=== PATIENT | female | born 1970 | race Two or more races ===

== ENCOUNTER 2018-03-14 20:57 | Observation (INO) | payer BC, OTHER ==
--- NOTE | 2018-03-14 21:26 | PDOC ---
Rapid Medical Evaluation Time Seen by Provider: 03/14/18 21:20 Medical Evaluation: Allergies Allergy/AdvReac Type Severity Reaction Status Date / Time diphenhydramine Allergy Intermediate Rash Verified 03/14/18 11:27 [From Benadryl] Penicillins Allergy Intermediate Rash Verified 03/14/18 11:27 03/14/18 21:21 Pt presents for low H&H found on lab work prior to procedure. Pt with vaginal bleeding for the last two months. Pt supposed to go for a hysteroscopy and D&C. Admits to SOB on exertion. Exam: Appears pale. NAD Orders: Labs, CXR, EKG Pt to proceed to ED for further evaluation Discharge Disposition - Diagnosis Abnormal laboratory test - Referrals Referrals: Eliz Mina DO [Primary Care Provider] - - Patient Instructions - Post Discharge Activity
--- NOTE | 2018-03-14 22:43 | PDOC ---
History of Present Illness - General Chief Complaint: Revisit, Lab Variance Stated Complaint: REF BY DOC. Time Seen by Provider: 03/14/18 21:20 History Source: Patient Exam Limitations: No Limitations - History of Present Illness Initial Comments: 03/15/18 04:22 Pt is a 47 y/o F with PMH of asthma, who presents for low H&H count today during routine blood work. Pt states she has dysfunctional uterine bleeding for the past two months. She follows with Dr. Mina. Given her symptoms, Dr. Mina wanted to take the patient for D&C and hysteroscopy. Her procedure was delayed d/t her H&H count. Pt presents to the ED for transfusion at this time. Pt also admits to shortness of breath on exertion and pale skin. States she goes through a couple of pads a day. Past History - Travel Traveled outside of the country in the last 30 days: No Close contact w/someone who was outside of country & ill: No - Past Medical History Allergies/Adverse Reactions: Allergies Allergy/AdvReac Type Severity Reaction Status Date / Time diphenhydramine Allergy Intermediate Rash Verified 03/14/18 21:24 [From Benadryl] Penicillins Allergy Intermediate Rash Verified 03/14/18 21:24 Home Medications: Ambulatory Orders Cholecalciferol (Vitamin D3) [Vitamin D3 -] 400 unit PO DAILY 03/14/18 Vitamin B Complex 1 each PO DAILY 03/14/18 Anemia: Yes Asthma: Yes (SEASONAL) Cancer: No Cardiac Disorders: Yes (HEART MURMUR) CVA: No COPD: No CHF: No Dementia: No Diabetes: No GI Disorders: No Disorders: No HTN: No Hypercholesterolemia: No Liver Disease: No Seizures: No Thyroid Disease: No - Suicide/Smoking/Psychosocial Hx Smoking History: Never smoked Have you smoked in the past 12 months: Yes Number of Cigarettes Smoked Daily: 5 Hx Alcohol Use: Yes (OCCAS) Drug/Substance Use Hx: No Substance Use Type: None Hx Substance Use Treatment: No Review of Systems - Review of Systems Able to Perform ROS?: Yes Is the patient limited Nigerien proficient: No Constitutional: No: Chills, Fever, Weakness HEENTM: No: Ear Pain, Nose Congestion, Throat Pain Respiratory: Yes: SOB with Exertion. No: Cough, Wheezing Cardiac (ROS): No: Chest Pain, Irregular Heart Rate, Palpitations, Syncope, Chest Tightness ABD/GI: No: Diarrhea, Nausea, Vomiting : Yes: Other (vaginal bleeding x2 months). No: Burning, Dysuria, Pain Musculoskeletal: No: Back Pain, Muscle Pain, Neck Pain Neurological: No: Headache, Numbness, Paresthesia, Weakness, Dizziness Psychiatric: No: Anxiety, Depression Endocrine: No: Excessive Sweating, Intolerance to Cold, Change in Weight Hematologic/Lymphatic: No: Anemia, Blood Clots, Easy Bleeding All Other Systems: Reviewed and Negative *Physical Exam - Vital Signs Last Vital Signs Temp Pulse Resp BP Pulse Ox 98.8 F 78 18 128/75 100 03/14/18 21:20 03/14/18 21:20 03/14/18 21:20 03/14/18 21:20 03/14/18 21:20 - Physical Exam General Appearance: Yes: Nourished, Appropriately Dressed. No: Apparent Distress HEENT: positive: EOMI, AMANDA, Pale Conjunctivae. negative: Normal Voice, TMs Normal, Scleral Icterus (L) Neck: positive: Trachea midline, Supple. negative: Tender, Rigid, Lymphadenopathy (R), Lymphadenopathy (L) Respiratory/Chest: positive: Lungs Clear. negative: Chest Tender, Respiratory Distress, Accessory Muscle Use, Rhonchi, Stridor, Wheezing Cardiovascular: positive: Regular Rhythm, Regular Rate, S1, S2 (present). negative: Murmur Vascular Pulses: Femoral (R): 2+, Femoral (L): 2+, Carotid (R): 2+, Carotid (L) : 2+, Dorsalis-Pedis (R): 2+, Doralis-Pedis (L): 2+ Gastrointestinal/Abdominal: positive: Normal Bowel Sounds, Flat, Soft. negative : Tender, Distended, Guarding, Rebound Musculoskeletal: positive: Normal Inspection. negative: CVA Tenderness Extremity: positive: Normal Capillary Refill, Normal Inspection, Normal Range of Motion Integumentary: positive: Dry, Warm, Pale Neurologic: positive: peanut vendor II-XII NML intact, Fully Oriented, Alert, Normal Mood/ Affect, Normal Response, Motor Strength 5/5 ED Treatment Course - LABORATORY CBC & Chemistry Diagram: 03/15/18 00:29 03/15/18 00:29 - RADIOLOGY Radiology Studies Ordered: Category Date Time Status CHEST PA & LAT [RAD] Stat Radiology 03/14/18 21:26 Ordered Medical Decision Making - Medical Decision Making 03/15/18 04:31 Pt is a 47 y/o F with PMH of asthma, who presents for low H&H count today during routine blood work. Pt states she has dysfunctional uterine bleeding for the past two months. She follows with Dr. Mina. -Lab work shows H&H of 6.6, will order two units at this time -Other lab work is unremarkable, no leukocytosis or gross electrolyte abnormalities. -EKG: NSR rate 61 bpm, Normal intervals and axis. no acute ST-T wave changes -Pt will require two units of PRBC, will place pt in observation. Pt with no PCP. Case discussed with Mario Alberto PRATHERII. Accepted to obs med/surg *DC/Admit/Observation/Transfer Diagnosis at time of Disposition: Anemia Qualifiers: Anemia type: unspecified type Qualified Code(s): D64.9 - Anemia, unspecified - Discharge Dispostion Condition at time of disposition: Stable Decision to Admit order: Yes - Referrals Referrals: Eliz Mina DO [Primary Care Provider] - - Patient Instructions - Post Discharge Activity
--- NOTE | 2018-03-14 22:55 | PDOC ---
*Physical Exam - Vital Signs Last Vital Signs Temp Pulse Resp BP Pulse Ox 98.8 F 78 18 128/75 100 03/14/18 21:20 03/14/18 21:20 03/14/18 21:20 03/14/18 21:20 03/14/18 21:20 Medical Decision Making - Medical Decision Making 03/14/18 22:55 agree with care from [facility] *DC/Admit/Observation/Transfer Diagnosis at time of Disposition: Abnormal laboratory test - Referrals Referrals: Eliz Mina DO [Primary Care Provider] - - Patient Instructions - Post Discharge Activity
[2018-03-15 00:53] LABS: BASO % 0.9 % (0-2.0); EOS % 2.2 % (0-4.5); HEMATOCRIT 21.8 % (32.4-45.2); LYMPH % 32.2 % (8-40); MCH 21.7 pg (25.7-33.7); MCHC 30.3 g/dl (32.0-36.0); MEAN CELL VOLUME 71.6 fl (80-96); MEAN PLT VOLUME 8.3 fl (7.5-11.1); MONO % 11.5 % (3.8-10.2); NEUT % 53.2 % (42.8-82.8); PLATELET COUNT 223 K/MM3 (134-434); RBC 3.05 M/mm3 (3.60-5.2); RDW 16.9 % (11.6-15.6); WHITE BLOOD COUNT 5.8 K/mm3 (4.0-10.0)
[2018-03-15 00:58] LABS: HEMOGLOBIN 6.6 GM/dL (10.7-15.3)
[2018-03-15 01:05] LABS: URINE APPEARANCE CLEAR; URINE BILIRUBIN NEGATIVE (<2.0 mg/dL); URINE COLOR STRAW; URINE GLUCOSE (UA) NEGATIVE (NEGATIVE); URINE KETONE NEGATIVE (NEGATIVE); URINE LEUK ESTERASE NEGATIVE (NEGATIVE); URINE NITRITE NEGATIVE (NEGATIVE); URINE PROTEIN NEGATIVE (NEGATIVE); URINE UROBILINOGEN NEGATIVE mg/dL (0.2-1.0)
[2018-03-15 01:07] LABS: INR 1.06 (0.83-1.09)
[2018-03-15 01:20] LABS: ALBUMIN 3.5 g/dl (3.4-5.0); ALK PHOS 52 U/L (45-117); ANION GAP 3 MMOL/L (8-16); BILIRUBIN,TOTAL 0.2 mg/dL (0.2-1.0); BLOOD UREA NITROGEN 12 mg/dL (7-18); CALCIUM 8.2 mg/dL (8.5-10.1); CHLORIDE 107 mmol/L (98-107); CO2 29 mmol/L (21-32); CREATININE 0.7 mg/dL (0.55-1.02); GLUCOSE,RANDOM 100 mg/dL (74-106); POTASSIUM 3.8 mmol/L (3.5-5.1); SGOT/AST 17 U/L (15-37); SGPT/ALT 17 U/L (12-78); SODIUM 139 mmol/L (136-145); TOT PROT 7.5 g/dl (6.4-8.2)
--- NOTE | 2018-03-15 04:25 | HP ---
CHIEF COMPLAINT: anemia PCP: none HISTORY OF PRESENT ILLNESS: The patient is a 47 yo f w/ PMH asthma, anemia who was sent to the ED by her DETAIL TECHNICIAN for Hb 6.5 on pre-op evaluation. Patient state sthat she has been having daily vaginal bleeding for the past 2 months accompanied by weakness, pallor, SOB and palpitations. She presented to her DETAIL TECHNICIAN, who saw an endometrial polyp vs overlapping soft tissue on pelvic sonogram, necessitating hysteroscopy for further evaluation. The procedure was scheduled for later today, 03/15/18. Patient endorses lightheadedness, fatigue and weakness at the time of interview. ER course was notable for: (1) Hb 6.6 (2) Upreg negative (3) T&S, 2 units PRBC Recent Travel: none PAST MEDICAL HISTORY: see HPI PAST SURGICAL HISTORY: none Social History: Smoking: current everyday smoker, 5 cigs/day Alcohol: social drinker Drugs: denies Family History: Mother of colon cancer at 51 Allergies diphenhydramine [From Benadryl] Allergy (Intermediate, Verified 03/14/18 21:24) Rash Penicillins Allergy (Intermediate, Verified 03/14/18 21:24) Rash HOME MEDICATIONS: Home Medications Medication Instructions Recorded Cholecalciferol (Vitamin D3) 400 unit PO DAILY 03/14/18 [Vitamin D3 -] Vitamin B Complex 1 each PO DAILY 03/14/18 REVIEW OF SYSTEMS CONSTITUTIONAL: Absent: fever, chills, diaphoresis, loss of appetite, weight change HEENT: Absent: rhinorrhea, nasal congestion, throat pain, throat swelling, difficulty swallowing, mouth swelling, ear pain, eye pain, visual changes CARDIOVASCULAR: Absent: chest pain, syncope, irregular heart rate, peripheral edema RESPIRATORY: Absent: cough, dyspnea with exertion, orthopnea, wheezing, stridor, hemoptysis GASTROINTESTINAL: Absent: abdominal pain, abdominal distension, nausea, vomiting, diarrhea, constipation, melena, hematochezia GENITOURINARY: Absent: dysuria, frequency, urgency, hesitancy, hematuria, flank pain, genital pain MUSCULOSKELETAL: Absent: myalgia, arthralgia, joint swelling, back pain, neck pain SKIN: Absent: rash, itching, pallor HEMATOLOGIC/IMMUNOLOGIC: Absent: easy bleeding, easy bruising, lymphadenopathy, frequent infections ENDOCRINE: Absent: unexplained weight gain, unexplained weight loss, heat intolerance, cold intolerance NEUROLOGIC: Absent: headache, focal weakness or paresthesias, dizziness, unsteady gait, seizure, mental status changes, bladder or bowel incontinence PSYCHIATRIC: Absent: anxiety, depression, suicidal or homicidal ideation, hallucinations. PHYSICAL EXAMINATION Vital Signs - 24 hr 03/14/18 21:20 Temperature 98.8 F Pulse Rate 78 Respiratory 18 Rate Blood Pressure 128/75 O2 Sat by Pulse 100 Oximetry (%) GENERAL: Awake, alert, and fully oriented, in no acute distress. General pallor noted. HEAD: Normal with no signs of trauma. EYES: Pupils equal, round and reactive to light, extraocular movements intact, sclera anicteric, conjunctiva clear. No lid lag. Conjunctival pallor noted EARS, NOSE, THROAT: oropharynx clear without exudates. Moist mucous membranes. NECK: Normal range of motion, supple without lymphadenopathy, JVD, or masses. LUNGS: Breath sounds equal, clear to auscultation bilaterally. No wheezes, and no crackles. No accessory muscle use. HEART: Regular rate and rhythm, normal S1 and S2 without murmur, rub or gallop. ABDOMEN: Soft, nontender, not distended, normoactive bowel sounds, no guarding, no rebound, no masses. No hepatomegaly or splenomegaly. LOWER EXTREMITIES: 2+ pulses, warm, well-perfused. No calf tenderness. No peripheral edema. NEUROLOGICAL: Cranial nerves II-X intact. Normal speech. Normal gait. PSYCHIATRIC: Cooperative. Good eye contact. Appropriate mood and affect. SKIN: Warm, dry, normal turgor, no rashes or lesions noted, normal capillary refill. Laboratory Results - last 24 hr 03/14/18 03/14/18 03/15/18 00:45 00:45 00:29 WBC 5.8 RBC 3.05 L Hgb 6.6 L* Hct 21.8 L MCV 71.6 L MCH 21.7 L MCHC 30.3 L RDW 16.9 H Plt Count 223 MPV 8.3 Absolute Neuts (auto) 3.1 Neutrophils % 53.2 Lymphocytes % 32.2 Monocytes % 11.5 H Eosinophils % 2.2 Basophils % 0.9 Nucleated RBC % 0 PT with INR INR Sodium Potassium Chloride Carbon Dioxide Anion Gap BUN Creatinine Creat Clearance w eGFR Random Glucose Calcium Total Bilirubin AST ALT Alkaline Phosphatase Total Protein Albumin Urine Color Straw Urine Appearance Clear Urine pH 7.0 Ur Specific [place] 1.009 Urine Protein Negative Urine Glucose (UA) Negative Urine Ketones Negative Urine Blood Negative Urine Nitrite Negative Urine Bilirubin Negative Urine Urobilinogen Negative Ur Leukocyte Esterase Negative Urine HCG, Qual Negative Blood Type Antibody Screen Crossmatch 03/15/18 03/15/18 03/15/18 00:29 00:29 00:29 WBC RBC Hgb Hct MCV MCH MCHC RDW Plt Count MPV Absolute Neuts (auto) Neutrophils % Lymphocytes % Monocytes % Eosinophils % Basophils % Nucleated RBC % PT with INR 12.00 INR 1.06 Sodium 139 Potassium 3.8 Chloride 107 Carbon Dioxide 29 Anion Gap 3 L BUN 12 Creatinine 0.7 Creat Clearance w eGFR > 60 Random Glucose 100 Calcium 8.2 L Total Bilirubin 0.2 AST 17 ALT 17 Alkaline Phosphatase 52 Total Protein 7.5 Albumin 3.5 Urine Color Urine Appearance Urine pH Ur Specific [place] Urine Protein Urine Glucose (UA) Urine Ketones Urine Blood Urine Nitrite Urine Bilirubin Urine Urobilinogen Ur Leukocyte Esterase Urine HCG, Qual Blood Type A NEGATIVE Antibody Screen Negative Crossmatch See Detail ASSESSMENT/PLAN: The patient is a 47 yo f w/ PMH anemia and asthma who was sent to the ED by her rn gyn for severe anemia. #Anemia 2/2 DUB -s/p type and screen in ED -2u PRBC ordered by ED staff -DETAIL TECHNICIAN consult #FEN -2 U PRBC -lytes WNL -regular diet #prophy -SCDs #dispo -admit for observation med surg Visit type - Emergency Visit Emergency Visit: Yes Care time: The patient presented to the Emergency Department on the above date and was hospitalized for further evaluation of their emergent condition. - New Patient This patient is new to me today: Yes Date on this admission: 03/15/18 - Critical Care Critical Care patient: No Hospitalist Screening - Colonoscopy Questionnaire Colonoscopy Questionnaire: Colonoscopy Questionnaire - Patient: 50 - 75 years old and never had a screening colonoscopy: No History of colon or rectal polyps, or CA: No History of IBD, Crohn's disease or UC: No History of abdominal radiation therapy as a child: No - Relative: 1 with colon or rectal CA, or polyps at age 60 or younger: Yes Colon or rectal CA diagnosed at age 45 or younger: No Multiple relatives with colon or rectal CA: No - Outcome: Screening Result: Positive Screen
--- NOTE | 2018-03-15 04:42 | PN ---
Teaching Attending Note Name of Resident: Giancarlo Ocampo ATTENDING PHYSICIAN STATEMENT I saw and evaluated the patient. I reviewed the resident's note and discussed the case with the resident. I agree with the resident's findings and plan as documented. SUBJECTIVE: Patient is a 47 year old woman with history of tobacco use and asthma, who presents with severe anemia found during pre-op blood work. She has dysfunctional uterine bleeding for the past two months and was scheduled for D& C and hysteroscopy. Her procedure was delayed due to her anemia. She has shortness of breath on exertion and pale skin. Says she goes through a couple of pads a day. Had menorrhagia even before the continuous bleeding of the past two months. OBJECTIVE: Alert Vital Signs Period Temp Pulse Resp BP Sys/[place] Pulse Ox Last 24 Hr 98.8 F 78 18 128/75 100 HEENT: No Jaundice, Has pallor; no eye redness or discharge, PERRLA, EOMI. Normocephalic, atraumatic. External ears are normal and hearing is grossly intact. No nasal discharge. Neck: Supple, nontender. No palpable adenopathy or thyromegaly. No JVD Chest: Good effort. Clear to auscultation and percussion. Heart: Regular. No S3, rub or murmur Abdomen: Not distended, soft, nontender and no HSM. No rebound or guarding. Normoactive bowel sounds. Ext: Peripheral pulses intact. No leg edema. Skin: Warm and dry. No petechiae, rash or ecchymosis. Neuro: Alert. Oriented x3. CN 2-12 grossly intact. Sensation grossly intact in all four extremities and DTR are symmetric. Home Medications Medication Instructions Recorded Cholecalciferol (Vitamin D3) 400 unit PO DAILY 03/14/18 [Vitamin D3 -] Vitamin B Complex 1 each PO DAILY 03/14/18 Abnormal Lab Results 03/15/18 03/15/18 03/15/18 00:29 00:29 00:29 RBC 3.05 L Hgb 6.6 L* Hct 21.8 L MCV 71.6 L MCH 21.7 L MCHC 30.3 L RDW 16.9 H Monocytes % 11.5 H Anion Gap 3 L Calcium 8.2 L Crossmatch See Detail ASSESSMENT AND PLAN: 1. Symptomatic anemia due to dysfunctional uterine bleeding - Plan is for 2 units of PRBC transfusion. Do serial stool guaiacs. Will benefit from high value oral iron supplementation in the future. No imaging studies available from PCP. Consult her TYPING SECTION CHIEF to reschedule procedure post transfusion. 2. Tobacco Use We will provide patient all the necessary assistance to facilitate smoking cessation and prescribe Nicotine patch. 3. DVT prophylaxis - Lovenox 40 mg SQ q 24 hours. 4. Advance directives - Full code
[2018-03-15] MEDS ORDERED: Methylnaltrexone Bromide 12 MG/0.6 ML KIT SQ SCH (11:45)
--- NOTE | 2018-03-15 11:47 | PN ---
Physical Exam: SUBJECTIVE: Patient seen and examined at bedside in the ER Patient states her dizziness lightheadedness and chest pain improved with transfusion OBJECTIVE: Vital Signs Period Temp Pulse Resp BP Sys/[place] Pulse Ox Last 24 Hr 98.2 F-99.2 F 56-78 16-18 106-128/63-78 97-100 GENERAL: The patient is awake, alert, and fully oriented, in no acute distress. HEAD: Normal with no signs of trauma. EYES: conjunctival pallor NECK: Trachea midline, full range of motion, supple. LUNGS: Breath sounds equal, clear to auscultation bilaterally, no wheezes, no crackles, no accessory muscle use. HEART: Regular rate and rhythm, S1, S2 without murmur, rub or gallop. ABDOMEN: Soft, nontender, nondistended, normoactive bowel sounds, no guarding, no rebound, no hepatosplenomegaly, no masses. EXTREMITIES: warm, well-perfused, no edema. NEUROLOGICAL: Cranial nerves II through XII grossly intact. Normal speech, gait not observed. Laboratory Results - last 24 hr 03/14/18 03/14/18 03/15/18 00:45 00:45 00:29 WBC 5.8 RBC 3.05 L Hgb 6.6 L* Hct 21.8 L MCV 71.6 L MCH 21.7 L MCHC 30.3 L RDW 16.9 H Plt Count 223 MPV 8.3 Absolute Neuts (auto) 3.1 Neutrophils % 53.2 Lymphocytes % 32.2 Monocytes % 11.5 H Eosinophils % 2.2 Basophils % 0.9 Nucleated RBC % 0 PT with INR INR Sodium Potassium Chloride Carbon Dioxide Anion Gap BUN Creatinine Creat Clearance w eGFR Random Glucose Calcium Total Bilirubin AST ALT Alkaline Phosphatase Total Protein Albumin Urine Color Straw Urine Appearance Clear Urine pH 7.0 Ur Specific [place] 1.009 Urine Protein Negative Urine Glucose (UA) Negative Urine Ketones Negative Urine Blood Negative Urine Nitrite Negative Urine Bilirubin Negative Urine Urobilinogen Negative Ur Leukocyte Esterase Negative Urine HCG, Qual Negative Blood Type Antibody Screen Crossmatch 03/15/18 03/15/18 03/15/18 00:29 00:29 00:29 WBC RBC Hgb Hct MCV MCH MCHC RDW Plt Count MPV Absolute Neuts (auto) Neutrophils % Lymphocytes % Monocytes % Eosinophils % Basophils % Nucleated RBC % PT with INR 12.00 INR 1.06 Sodium 139 Potassium 3.8 Chloride 107 Carbon Dioxide 29 Anion Gap 3 L BUN 12 Creatinine 0.7 Creat Clearance w eGFR > 60 Random Glucose 100 Calcium 8.2 L Total Bilirubin 0.2 AST 17 ALT 17 Alkaline Phosphatase 52 Total Protein 7.5 Albumin 3.5 Urine Color Urine Appearance Urine pH Ur Specific [place] Urine Protein Urine Glucose (UA) Urine Ketones Urine Blood Urine Nitrite Urine Bilirubin Urine Urobilinogen Ur Leukocyte Esterase Urine HCG, Qual Blood Type A NEGATIVE Antibody Screen Negative Crossmatch See Detail Active Medications Generic Name Dose Route Start Last Admin Trade Name Freq PRN Reason Stop Dose Admin Methylnaltrexone [place] 12 mg 03/15/18 11:45 Relistor - SQ DAILY [place]AC[place] ASSESSMENT/PLAN: 47F with history of asthma and anemia secondary to dysfunctional uterine bleeding presents to the ER with acute on chronic blood loss anemia secondary to uterine bleeding. Dysfunctional uterine bleeding in the setting of acute blood loss anemia: s/p 1 unit PRBCs second unit to be transfused-Ordered by ED trend CBC [employer] Dr. Mina consulted to see if she would like to do D&C and hysteroscopy as planned for today or if she will cancel and reschedule at a later time when Hb more stable Asthma: No active at this time FEN: Getting PRBCs no electrolyte issues NPO for now in case going to [place] PPx: SCDs Case discussed with Dr. Archibald Visit type - Emergency Visit Emergency Visit: Yes ED Registration Date: 03/15/18 Care time: The patient presented to the Emergency Department on the above date and was hospitalized for further evaluation of their emergent condition. - New Patient This patient is new to me today: Yes Date on this admission: 03/15/18 - Critical Care Critical Care patient: No - Discharge Referral Referred to [facility] Med P.C.: No
--- NOTE | 2018-03-15 11:55 | EKG ---
Test Reason : Blood Pressure : / mmHG Vent. Rate : 061 BPM Atrial Rate : 061 BPM P-R Int : 156 ms QRS Dur : 090 ms QT Int : 412 ms P-R-T Axes : 059 051 046 degrees QTc Int : 414 ms POOR DATA QUALITY, INTERPRETATION MAY BE ADVERSELY AFFECTED NORMAL SINUS RHYTHM NORMAL ECG NO PREVIOUS ECGS AVAILABLE Confirmed by JANESSA FENG MD ([id number]) on 03/15/2018 11:55:02 AM Referred By: Confirmed By:JANESSA FENG MD
[2018-03-15 13:13] VITALS: PULSE 57
[2018-03-15 14:31] VITALS: BP 118/62; TEMP 97.7; BMI 24.9
--- NOTE | 2018-03-15 15:03 | PN ---
Progress Note (short form) - Note Progress Note: Spoke to nursing staff. Pt admitted overnight for blood transfusion for severe anemia (Hgb 6.4). Pt now s/p 2units PRBC. Was to have a D&C hysteroscopy today, however pt ate at 9am so surgery postponed until tomorrow at noon. To draw CBC now, if stable pt can go home and come back to hospital tomorrow as scheduled for outpatient surgery. Thanks you to medical team for caring for this patient.
--- NOTE | 2018-03-15 15:34 | PN ---
Teaching Attending Note Name of Resident: Clarke Hi ATTENDING PHYSICIAN STATEMENT I saw and evaluated the patient. I reviewed the resident's note and discussed the case with the resident. I agree with the resident's findings and plan as documented. SUBJECTIVE: Patient feels tired, otherwise she has no complaints. OBJECTIVE: Vital Signs Period Temp Pulse Resp BP Sys/[place] Pulse Ox Last 24 Hr 97.7 F-99.2 F 56-78 16-18 106-128/62-78 97-100 HEART: S1S2, RRR LUNGS: Clear ABDOMEN: Soft, non-tender, non-distended, normal BS EXTREMITIES: No edema Laboratory Results - last 24 hr 03/14/18 03/14/18 03/15/18 00:45 00:45 00:29 WBC 5.8 RBC 3.05 L Hgb 6.6 L* Hct 21.8 L MCV 71.6 L MCH 21.7 L MCHC 30.3 L RDW 16.9 H Plt Count 223 MPV 8.3 Absolute Neuts (auto) 3.1 Neutrophils % 53.2 Lymphocytes % 32.2 Monocytes % 11.5 H Eosinophils % 2.2 Basophils % 0.9 Nucleated RBC % 0 PT with INR INR Sodium Potassium Chloride Carbon Dioxide Anion Gap BUN Creatinine Creat Clearance w eGFR Random Glucose Calcium Total Bilirubin AST ALT Alkaline Phosphatase Total Protein Albumin Urine Color Straw Urine Appearance Clear Urine pH 7.0 Ur Specific [place] 1.009 Urine Protein Negative Urine Glucose (UA) Negative Urine Ketones Negative Urine Blood Negative Urine Nitrite Negative Urine Bilirubin Negative Urine Urobilinogen Negative Ur Leukocyte Esterase Negative Urine HCG, Qual Negative Blood Type Antibody Screen Crossmatch 03/15/18 03/15/18 03/15/18 00:29 00:29 00:29 WBC RBC Hgb Hct MCV MCH MCHC RDW Plt Count MPV Absolute Neuts (auto) Neutrophils % Lymphocytes % Monocytes % Eosinophils % Basophils % Nucleated RBC % PT with INR 12.00 INR 1.06 Sodium 139 Potassium 3.8 Chloride 107 Carbon Dioxide 29 Anion Gap 3 L BUN 12 Creatinine 0.7 Creat Clearance w eGFR > 60 Random Glucose 100 Calcium 8.2 L Total Bilirubin 0.2 AST 17 ALT 17 Alkaline Phosphatase 52 Total Protein 7.5 Albumin 3.5 Urine Color Urine Appearance Urine pH Ur Specific [place] Urine Protein Urine Glucose (UA) Urine Ketones Urine Blood Urine Nitrite Urine Bilirubin Urine Urobilinogen Ur Leukocyte Esterase Urine HCG, Qual Blood Type A NEGATIVE Antibody Screen Negative Crossmatch See Detail ASSESSMENT AND PLAN: This is a 47 year old woman with a history of asthma, anemia, abnormal uterine bleeding who was scheduled for hysteroscopy and was sent to the ED after being found to have hemoglobin 6.5 on pre-op evaluation. 1. Acute blood loss anemia secondary to abnormal uterine bleeding - Transfused 2 units PRBCs - If hemoglobin stable, patient can be discharged and return tomorrow for hysteroscopy 2. Chronic microcytic anemia, likely iron-deficiency secondary to abnormal uterine bleeding 3. Asthma - Stable
[2018-03-15 15:45] LABS: EOS % 2.4 % (0-4.5); HEMATOCRIT 27.5 % (32.4-45.2); HEMOGLOBIN 8.7 GM/dL (10.7-15.3); LYMPH % 23.2 % (8-40); MCH 23.1 pg (25.7-33.7); MCHC 31.5 g/dl (32.0-36.0); MEAN CELL VOLUME 73.4 fl (80-96); MEAN PLT VOLUME 8.5 fl (7.5-11.1); MONO % 10.8 % (3.8-10.2); NEUT % 62.6 % (42.8-82.8); PLATELET COUNT 212 K/MM3 (134-434); RBC 3.75 M/mm3 (3.60-5.2); RDW 18.5 % (11.6-15.6); WHITE BLOOD COUNT 5.5 K/mm3 (4.0-10.0)
--- NOTE | 2018-03-16 07:23 | DS ---
Physical Exam: SUBJECTIVE: Patient seen and examined Ready and stable for discharge OBJECTIVE: Vital Signs Period Temp Pulse Resp BP Sys/[place] Pulse Ox Last 24 Hr 97.7 F-99.2 F 56-77 16-18 106-124/62-78 97-100 PHYSICAL EXAM GENERAL: The patient is awake, alert, and fully oriented, in no acute distress. HEAD: Normal with no signs of trauma. EYES: conjunctival pallor NECK: Trachea midline, full range of motion, supple. LUNGS: Breath sounds equal, clear to auscultation bilaterally, no wheezes, no crackles, no accessory muscle use. HEART: Regular rate and rhythm, S1, S2 without murmur, rub or gallop. ABDOMEN: Soft, nontender, nondistended, normoactive bowel sounds, no guarding, no rebound, no hepatosplenomegaly, no masses. EXTREMITIES: warm, well-perfused, no edema. NEUROLOGICAL: Cranial nerves II through XII grossly intact. Normal speech, gait not observed. LABS Laboratory Results - last 24 hr 03/15/18 03/15/18 00:29 15:15 WBC 5.5 RBC 3.75 Hgb 8.7 L Hct 27.5 L D MCV 73.4 L MCH 23.1 L MCHC 31.5 L RDW 18.5 H Plt Count 212 MPV 8.5 Absolute Neuts (auto) 3.4 Neutrophils % 62.6 Lymphocytes % 23.2 D Monocytes % 10.8 H Eosinophils % 2.4 Basophils % 1.0 Nucleated RBC % 0 Blood Type A NEGATIVE Antibody Screen Negative Crossmatch See Detail HOSPITAL COURSE: Date of Admission:03/15/18 Date of Discharge: 03/16/18 47F with history of asthma and 2 month history of dysfunctional uterine bleeding presented to the ER at the direction of her [employer] Dr. Mina because pre-op CBC showed Hb 6.4. She was sent to ER and Hb found to be 6.5. Patient was supposed to have a hysteroscopy and D&C. She was actually scheduled for the day of admission but since patient ate at 9am the surgery was rescheduled for . Patient relieved 2 units PRBCs and had an appropriate response. Hb 8.7. Minutes to complete discharge: 35 Discharge Summary Reason For Visit: ANEMIA Condition: Improved - Instructions Diet, Activity, Other Instructions: You were admitted with anemia (hemoglobin 6.6) secondary to vaginal bleeding. You were transfused 2 units of blood and your hemoglobin improved to 8.7. Your procedure, D&C hysteroscopy, had to be postponed until tomorrow (Mar 16) at noon. Referrals: Eliz Mina DO [Primary Care Provider] - Disposition: HOME - Home Medications Comprehensive Discharge Medication List: Ambulatory Orders Cholecalciferol (Vitamin D3) [Vitamin D -] 400 unit PO DAILY 03/14/18 Vitamin B Complex 1 each PO DAILY 03/14/18 This patient is new to me today: Yes Date on this admission: 03/16/18 Emergency Visit: Yes ED Registration Date: 03/15/18 Care time: The patient presented to the Emergency Department on the above date and was hospitalized for further evaluation of their emergent condition. Critical Care patient: No - Discharge Referral Referred to [facility] No
== END 2018-03-15 17:57 | disposition home or self-care (01) ==
LOC: JER 20:57 → JERBED 03-15 03:15 → UNDOADMOB 03-15 04:37 → JERBED 03-15 04:37 → J8W 03-15 13:54
PROVIDERS: ADMIT Internal Medicine; ATTEND Internal Medicine
PROC: 30233N1 Transfusion of Nonautologous Red Blood Cells into Peripheral Vein, Percutaneous Approach (ICD-10-PCS; principal; 2018-03-15)
DX: D50.0 Iron deficiency anemia secondary to blood loss (chronic) (principal); N93.8 Other specified abnormal uterine and vaginal bleeding; J45.909 Unspecified asthma, uncomplicated; R01.1 Cardiac murmur, unspecified; Z87.891 Personal history of nicotine dependence; Z88.0 Allergy status to penicillin
CPT/HCPCS: 36415; 36430; 71046-TC-FY; 80053; 81003; 84703; 85025; 85610; 86850; 86900; 86901; 86922; 93005; 93010; 99282-25; G0378; P9038; P9058

== ENCOUNTER 2018-03-16 12:04 | Day surgery (SDC) | payer BC, OTHER ==
[2018-03-14 11:27] VITALS: BMI 24.3
[2018-03-16] MEDS ORDERED: ACETAMINOPHEN 325 MG TABLET (FP) PO PRN (12:12)
[2018-03-16] MEDS ORDERED: IBUPROFEN 800 MG/8 ML IJ IVPB PRN (12:12)
--- NOTE | 2018-03-16 12:12 | HP ---
History & Physical Update - History History: No Change - Physical Physical: No Change - Assessment Assessment: No Change - Plan Plan: No Change (AUB, for hysteroscpoy D&C, agree with H&P from 03/14)
[2018-03-16] MEDS ORDERED: LACTATED RINGERS SOLUTION 1,000 ML IV SCH ×2 (12:15→15:30)
[2018-03-16] MEDS ORDERED: fentaNYL CITRATE 250 MCG/5 ML VIAL ONE (13:52)
[2018-03-16] MEDS ORDERED: SUCCINYLCHOLINE CHLORIDE 200 MG/10 ML VIAL ONE (13:52)
[2018-03-16] MEDS ORDERED: PROPOFOL 20 ML ONE (13:52)
[2018-03-16] MEDS ORDERED: MIDAZOLAM HCL 2 MG/2 ML SINGLE DOSE VIAL ONE (13:53)
[2018-03-16] MEDS ORDERED: DEXAMETHASONE SOD PHOSPHATE 4 MG/1 ML VIAL ONE (13:53)
[2018-03-16] MEDS ORDERED: ROCURONIUM BROMIDE 50 MG/5 ML VIAL ONE (13:53)
[2018-03-16] MEDS ORDERED: LIDOCAINE HCL/PF 2% SDV 5ML VIAL ONE (13:53)
[2018-03-16] MEDS ORDERED: ONDANSETRON 4 MG/2 ML VIAL IVPUSH PRN (15:16)
[2018-03-16] MEDS ORDERED: IBUPROFEN 800 MG/8 ML IJ IVPB ONE (15:27)
[2018-03-16 17:28] VITALS: BP 109/63; PULSE 54; TEMP 97.8
--- NOTE | 2018-03-21 10:34 | PATH ---
Surgical Pathology Report Patient Name: RIC PARIS [facility]. Rec. #: [id number] /Age/Gender: 1970 (Age: 47) / F Account: [id number] Location: [facility] Taken: 03/16/2018 Received: 03/20/2018 Reported: 03/21/2018 Physicians: Eliz Mina M.D. Specimen(s) Received ENDOMETRIAL CURETTINGS Clinical History Abnormal uterine bleeding Final Diagnosis ENDOMETRIAL CURETTINGS, DILATION AND CURETTAGE: POLYPOID FRAGMENTS OF PROLIFERATIVE ENDOMETRIUM AND SCANT ECTOCERVICAL SQUAMOUS MUCOSA. Electronically Signed Elizabeth Nassar M.D. Gross Description Received in formalin, labeled "endometrial curettings," is a 4.0 x 2.8 x 0.3 cm aggregate of newman soft tissue fragments. The formalin is filtered and the specimen is entirely submitted in 2 cassettes. /03/20/2018 saudi03/20/2018
--- NOTE | 2018-03-26 15:22 | OP ---
Operative Note - Note: Operative Date: 03/16/18 ([id number]) Pre-Operative Diagnosis: AUB, anemia Operation: diagnostic hysteroscopy, suction D&C Findings: polypoid/proliferative endometrium Post-Operative Diagnosis: Same as Pre-op Surgeon: Eliz Mina Anesthesiologist/SOFA BACK UPHOLSTERER: Arturo Villar Anesthesia: General Specimens Removed: endometrial curettings Estimated Blood Loss (mls): 10 Operative Report Dictated: Yes
--- NOTE | 2018-03-26 20:42 | OP ---
DATE OF OPERATION: 03/16/2018 PREOPERATIVE DIAGNOSES: Abnormal uterine bleeding and anemia. POSTOPERATIVE DIAGNOSES: Abnormal uterine bleeding and anemia. PROCEDURE: Diagnostic hysteroscopy, suction dilatation and curettage. SURGEON: Eliz Mina DO ANESTHESIOLOGIST: Arturo Villar MD ANESTHESIA: General. SPECIMENS REMOVED: Endometrial curettings. FINDINGS: Included polypoid or proliferative endometrium. No distinct endometrial polyps or fibroids. COMPLICATIONS: None. DISPOSITION: Stable to PACU. BRIEF HISTORY AND PROCEDURE: Patient is a 47-year-old female who had been seen in the office with complaint of a long history of abnormal uterine bleeding with long, heavy, painful periods. The patient had an ultrasound in the office, noting a thickened endometrium and possible endometrial polyps. The patient was counseled on her options and elected to undergo a diagnostic hysteroscopy, suction D&C. The patient was taken to the operating room on March 16, 2018, and given general anesthesia and placed in the dorsal lithotomy position. A hard timeout was performed. A diagnostic hysteroscope was placed through the cervix into the uterus. Bilateral tubal ostia were noted, and dense polypoid and proliferative endometrium was noted in the posterior and anterior aspects of the uterus. A sharp curettage in all 4 marin of the uterus and suction curettage were completed until all of the tissue had been removed. One final look with the hysteroscope revealed no evidence of uterine perforation or uterine trauma. All instruments were removed from the vagina. The tenaculum and cervical os sites were noted to be hemostatic. The patient was awoken from anesthesia and was recovering in stable condition in PACU after the procedure. ELIZ MINA DO /[id number]
== END 2018-03-16 17:28 | disposition home or self-care (01) ==
LOC: JASU-SURG 12:04
PROVIDERS: ATTEND Obstetrics & Gynecology
PROC: 0UDB7ZX Extraction of Endometrium, Via Natural or Artificial Opening, Diagnostic (ICD-10-PCS; principal; 2018-03-16 12:00)
PROC: 0UJD8ZZ Inspection of Uterus and Cervix, Via Natural or Artificial Opening Endoscopic (ICD-10-PCS; 2018-03-16 12:00)
DX: N93.9 Abnormal uterine and vaginal bleeding, unspecified (principal); D64.9 Anemia, unspecified
CPT/HCPCS: 88305-TC; 94760